=== PATIENT | female | born 1945 | race Caucasian/White ===

== ENCOUNTER 2019-09-26 13:43 | Emergency (ER) | payer MEDICARE, OTHER, SELFPAY ==
--- NOTE | ~2019-09-26 | XR_ITS ---
XR foot LT min 3V DATE: 09/26/2019 14:16 INDICATION: Plantar pain for a few days. No known injuries. TECHNIQUE: 4 views COMPARISON: None FINDINGS: There is prominent deformity at all metatarsal phalangeal joints, with deformity and attenu ation of the metatarsal heads and prominent secondary osteoarthritis. There is distal and medial disp lacement of the proximal phalanx with respect of the fifth metatarsal bone. Consider erosive arthropa thy versus neuropathic changes. There is chronic organized periosteal reaction along the fourth metatarsal shaft. Differential diagno sis includes stress fracture, chronic venous insufficiency, pulmonary osteoarthropathy. There is hallux valgus and bunion deformity at the first metatarsophalangeal joint. Moderate osteopenia. No recent fracture. No periosteal reaction or bone destruction is noted otherwise. IMPRESSION: Prominent deformity and osteoarthritic changes at the metatarsophalangeal joints Hallux valgus and bunion deformity Osteopenia Reviewed, dictated and finalized at location A. IMPRESSION: Prominent deformity and osteoarthritic changes at the metatarsophal angeal joints Hallux valgus and bunion deformity Osteopenia
[2019-09-26 13:58] VITALS: BP 168/71; PULSE 71; RESP 20; TEMP 36.8; O2SAT 98
--- NOTE | 2019-09-26 13:58 | ED.WOUNDLAC ---
HPI - Wound/Laceration General Chief Complaint: Wound/Laceration Stated Complaint: left foot infection Time Seen by Provider: 09/26/19 13:58 Source: patient Mode of arrival: ambulatory Limitations: no limitations History of Present Illness HPI narrative: Edie Em is a 74 yo female with a PMH of HTN, carotid stenosis, aneurysm, copd, RA, HTN, GERD, who comes to express care for draining L foot wound on sole of L foot. Technician trimmed toenails, shaved calluses. midfoot swelling and erythematous lesion with some red streaking of L ankle Related Data Home Medications Medication Instructions Recorded Confirmed albuterol sulfate INHALATION 09/26/19 amlodipine 09/26/19 atorvastatin 09/26/19 budesonide-formoterol INHALATION 09/26/19 citalopram mg 09/26/19 clonidine HCl 09/26/19 hydralazine 09/26/19 leflunomide mg 09/26/19 losartan 09/26/19 metoprolol tartrate 09/26/19 pantoprazole PO 09/26/19 potassium chloride [Klor-Con M10] meq PO 09/26/19 prednisone 09/26/19 tramadol mg 09/26/19 umeclidinium [Incruse Ellipta] INHALATION 09/26/19 Allergies Allergy/AdvReac Type Severity Reaction Status Date / Time Penicillins Allergy Unknown Rash Verified 09/26/19 14:11 methotrexate Allergy Rash Verified 09/26/19 14:11 [From Trexan (methotrexate)] Sulfa (Sulfonamide Allergy Rash Verified 09/26/19 14:11 Antibiotics) Review of Systems Review of Systems: Narrative: CONSTITUTIONAL: Denies fever, chills, sweats. EYES: Denies visual changes, redness, discharge. ENT: Denies rhinorrhea, congestion, sore throat, otalgia. CARDIOVASCULAR: Denies chest pain, palpitations, edema. RESPIRATORY: Denies dyspnea, wheezing, cough GASTROINTESTINAL: Denies abdominal pain, nausea, vomiting, diarrhea. GENITOURINARY: Denies dysuria, hematuria, abnormal discharge SKIN: Denies rash or itching. NEUROLOGIC: Denies numbness, or focal weakness. PSYCHIATRIC: Denies anxiety or depression. red warm swollen L solar foot lesion PMFSH Family History Family History Other Hypertension Social History Social History Smoking status: Former smoker Alcohol intake: former Gender identity (if verbalized by the patient): Female Comments At time of signature, I agree with nursing past medical, surgical, social and family history. There is no relevant family history pertinent to the presenting complaint. Exam Narrative: Exam Narrative: GENERAL: This is a well-nourished, well-developed patient, in mild distress. HEAD: normocephalic, atraumatic. EYES: Sclera clear/white. Vision is grossly intact. EARS: External ears normal. Hearing grossly intact. NOSE: External nose normal with nasal discharge, nares without redness, has rhinorrhea. THROAT: Mucous membranes moist, posterior pharynx mild erythema NECK: Neck supple, non-tender CARDIOVASCULAR: Regular rate and rhythm without murmurs, gallops, or rubs. RESPIRATORY: Clear to auscultation. Breath sounds equal bilaterally. No wheezes, rales, or rhonchi. Occ dry cough GASTROINTESTINAL: Abdomen soft, non-tender, SKIN: warm, intact with no suspicious lesions or rash, good texture and turgor. NEURO: awake, alert, and oriented to person, place and time. There were no obvious focal neurologic abnormalities. Steady gait EXTREMITIES: Normal range of motion. L foot lesion on medial solar midfoot with puss- mild streaking medial leg BACK: Nontender without deformity Course Course Emergency Course: Xray-no periosteal reaction or bone destruction, osteopenia, bunion started on clindamycin - must follow up with podiatry on Saturday Vital Signs Vital signs: Vital Signs Temperature 98.3 F 09/26/19 13:58 Pulse Rate 71 09/26/19 13:58 Respiratory Rate 20 09/26/19 13:58 Blood Pressure 168/71 H 09/26/19 13:58 Pulse Oximetry 98 09/26/19 13:58 Temperature 98.3
== END 2019-09-26 14:50 | disposition home or self-care (01) ==
PROVIDERS: Emergency Provider Nurse Practitioner
DX: L03.116 Cellulitis of left lower limb (principal); J44.9 Chronic obstructive pulmonary disease, unspecified; M06.9 Rheumatoid arthritis, unspecified; I10 Essential (primary) hypertension; K21.9 Gastro-esophageal reflux disease without esophagitis; I65.29 Occlusion and stenosis of unspecified carotid artery; Z87.891 Personal history of nicotine dependence
CPT/HCPCS: 73630; 99213; G0463